=== PATIENT | female | born 1980 | race Asian ===

== ENCOUNTER 2022-04-01 14:39 | Emergency (ER) | payer SELFPAY ==
[2022-04-01 15:31] LABS: Appearance,Urine Clear (Clear); Bilirubin,Urine Negative (Negative); Blood,Urine Negative (Negative); Color,Urine Colorless; Glucose,Urine (UA) Negative (Negative); Ketones,Urine Negative (Negative); Leukocyte Esterase,Urine Negative (Negative); Nitrite,Urine Negative (Negative); Protein,Urine Negative (Negative); Specific Gravity,Urine 1.003 (1.001-1.035); Urobilinogen,Urine <2.0 mg/dL (<2.0)
[2022-04-01] MEDS ORDERED: SODIUM CHLORIDE 0.9% 1,000 ML IV STA (16:29)
[2022-04-01] MEDS ORDERED: ACETAMINOPHEN TAB 500 MG TAB PO STA (16:30)
[2022-04-01 17:25] LABS: Basophils % (A) 0 %; Eosinophils # (A) 0.1 k/uL (0-0.7); Eosinophils % (A) 1 %; HCT 42.5 % (34.0-46.0); Lymphocytes # (A) 2.4 k/uL (1.0-4.8); Lymphocytes % (A) 34 %; MCH 31.3 pg (25.0-35.0); MCV 94.7 fL (80.0-100.0); Mean Platelet Volume 6.8; Monocytes # (A) 0.4 k/uL (0-1.0); Monocytes % (A) 6 %; Neutrophils # (A) 3.8 k/uL (1.3-7.7); Neutrophils % (A) 56 %; Platelet Count 342 k/uL (150-450); RBC 4.49 m/uL (3.80-5.40); WBC 6.9 k/uL (3.8-10.6)
--- NOTE | 2022-04-01 17:30 | US ---
EXAMINATION TYPE: Transabdominal DATE OF EXAM: 04/01/2022 5:09 PM COMPARISON: NONE CLINICAL HISTORY: VB and pain, at 4-5 weeks. spotting EXAM PERFORMED: Transvaginal (TV) and Transabdominal (TA) EXAM MEASUREMENTS: GESTATIONAL AGE / DATING Physician Established: Not yet established Dates by LMP: ( 5 weeks/0 days) EDC: 12/02/2022 Dates by First Scan: No previous this is first scan Dates by Current Scan for: Unable to date by today's study MATERNAL ANATOMY Uterus: 9.9 x 5.0 x 6.1 cm Right Ovary: obscured by bowel gas. Left Ovary: obscured by bowel gas. Post CDS / Adnexa: wnl Presence of free fluid: wnl Presence of corpus luteal cyst: no Presence of subchorionic bleed: no IMPRESSION: Uterus is empty. No adnexal mass. Ovaries are not seen. No free fluid.
[2022-04-01 17:36] LABS: ALT 15 U/L (4-34); AST 21 U/L (14-36); African American GFR (CKD) >90 (>60 ml/min/1.73 sqM); Albumin 4.7 g/dL (3.5-5.0); Alkaline Phosphatase 46 U/L (38-126); Anion Gap 14 mmol/L; Blood Urea Nitrogen 11 mg/dL (7-17); Carbon Dioxide 21 mmol/L (22-30); Chloride 103 mmol/L (98-107); Glucose 91 mg/dL (74-99); Lipase 193 U/L (23-300); Non-African American GFR(CKD) >90 (>60 ml/min/1.73 sqM); Potassium 3.8 mmol/L (3.5-5.1); Sodium 138 mmol/L (137-145); Total Bilirubin 0.4 mg/dL (0.2-1.3); Total Protein 7.4 g/dL (6.3-8.2)
[2022-04-01 17:53] LABS: HCG,Quantitative Serum 642.5 mIU/mL
--- NOTE | 2022-04-01 18:28 | ED ---
Abdominal Pain HPI - General Chief Complaint: Abdominal Pain Stated Complaint: ,Discharge,5wks Time Seen by Provider: 04/01/22 16:08 Source: patient Mode of arrival: ambulatory Limitations: language barrier - History of Present Illness Initial Comments: Patient is a 42-year-old A0 female at approximately 4-5 weeks who presents to the emergency department with a chief complaint of abdominal pain and vaginal bleeding. Patient states symptoms started a couple days ago. Describes pain as cramping in the lower abdomen. Has noticed brown discharge when wiping for the past couple days, more so in the morning. Denies bright red blood or clots. Denies fever, chills, nausea, vomiting. Patient has not established care with an mold sprayer yet. She resides in [facility] and is here visiting her 's family for the next month. - Related Data Allergies Allergy/AdvReac Type Severity Reaction Status Date / Time No Known Allergies Allergy Verified 04/01/22 15:11 Review of Systems ROS Statement: Those systems with pertinent positive or pertinent negative responses have been documented in the HPI. ROS Other: All systems not noted in ROS Statement are negative. Past Medical History Past Medical History: No Reported History Past Surgical History: No Surgical Hx Reported Past Psychological History: No Psychological Hx Reported Past Alcohol Use History: None Reported Past Drug Use History: None Reported General Exam Limitations: language barrier General appearance: alert, in no apparent distress Eye exam: Present: normal appearance, PERRL, EOMI. Absent: scleral icterus, conjunctival injection, periorbital swelling Respiratory exam: Present: normal lung sounds bilaterally. Absent: respiratory distress, wheezes, rales, rhonchi, stridor Cardiovascular Exam: Present: regular rate, normal rhythm, normal heart sounds. Absent: systolic murmur, diastolic murmur, rubs, gallop, clicks GI/Abdominal exam: Present: soft, normal bowel sounds. Absent: distended, tenderness, guarding, rebound, rigid Neurological exam: Present: alert, oriented X3, CN II-XII intact Psychiatric exam: Present: normal affect, normal mood Skin exam: Present: warm, dry, intact, normal color. Absent: rash Course Vital Signs 04/01/22 15:07 Temperature 98.7 F Pulse Rate 64 Respiratory 18 Rate Blood Pressure 112/75 O2 Sat by Pulse 98 Oximetry Medical Decision Making - Medical Decision Making This is a 42-year-old female approximately 45 weeks who presents with lower abdominal cramping and vaginal bleeding. Thorough history and examination were performed. Patient is well-appearing and in no apparent distress. Vitals stable. The abdomen is soft and nontender. Laboratory studies obtained. Serum quantitative hCG is 642.5. Ultrasound shows an empty uterus with no adnexal mass and no free fluid. RhoGAM is not indicated. Results discussed with patient and her . She may be too early in for ultrasound changes. Patient will be given prescription for repeat beta hCG in 48 hours for threatened miscarriage. Patient will be in [place] for another month. I will refer her to mold sprayer who can further evaluate and manage her symptoms. Patient encouraged to call Dr. Carvajal first thing Monday morning. Return parameters discussed. Dr. Melendrez is my attending. - Lab Data Result diagrams: 04/01/22 17:09 04/01/22 17:09 Lab Results 04/01/22 04/01/22 04/01/22 Range/Units 15:13 15:13 17:09 WBC 6.9 (3.8-10.6) k/uL RBC 4.49 (3.80-5.40) m/uL Hgb 14.0 (11.4-16.0) gm/dL Hct 42.5 (34.0-46.0) % MCV 94.7 (80.0-100.0) fL MCH 31.3 (25.0-35.0) pg MCHC 33.0 (31.0-37.0) g/dL RDW 12.0 (11.5-15.5) % Plt Count 342 (150-450) k/uL MPV 6.8 Neutrophils % 56 % Lymphocytes % 34 % Monocytes % 6 % Eosinophils % 1 % Basophils % 0 % Neutrophils # 3.8 (1.3-7.7) k/uL Lymphocytes # 2.4 (1.0-4.8) k/uL Monocytes # 0.4 (0-1.0) k/uL Eosinophils # 0.1 (0-0.7) k/uL Basophils # 0.0 (0-0.2) k/uL Sodium (137-145) mmol/L Potassium (3.5-5.1) mmol/L Chloride (98-107) mmol/L Carbon Dioxide (22-30) mmol/L Anion Gap mmol/L BUN (7-17) mg/dL Creatinine (0.52-1.04) mg/dL Est GFR (CKD-EPI)AfAm (>60 ml/min/1.73 sqM) Est GFR (CKD-EPI)NonAf (>60 ml/min/1.73 sqM) Glucose (74-99) mg/dL Calcium (8.4-10.2) mg/dL Total Bilirubin (0.2-1.3) mg/dL AST (14-36) U/L ALT (4-34) U/L Alkaline Phosphatase (38-126) U/L Total Protein (6.3-8.2) g/dL Albumin (3.5-5.0) g/dL Lipase (23-300) U/L HCG, Quant mIU/mL Urine Color Colorless Urine Appearance Clear (Clear) Urine pH 6.0 (5.0-8.0) Ur Specific [place] 1.003 (1.001-1.035) Urine Protein Negative (Negative) Urine Glucose (UA) Negative (Negative) Urine Ketones Negative (Negative) Urine Blood Negative (Negative) Urine Nitrite Negative (Negative) Urine Bilirubin Negative (Negative) Urine Urobilinogen <2.0 (<2.0) mg/dL Ur Leukocyte Esterase Negative (Negative) Urine HCG, Qual Detected (Not Detectd) Blood Type Blood Type Recheck Bld Type Recheck Status Antibody Screen Spec Expiration Date 04/01/22 04/01/22 Range/Units 17:09 17:10 WBC (3.8-10.6) k/uL RBC (3.80-5.40) m/uL Hgb (11.4-16.0) gm/dL Hct (34.0-46.0) % MCV (80.0-100.0) fL MCH (25.0-35.0) pg MCHC (31.0-37.0) g/dL RDW (11.5-15.5) % Plt Count (150-450) k/uL MPV Neutrophils % % Lymphocytes % % Monocytes % % Eosinophils % % Basophils % % Neutrophils # (1.3-7.7) k/uL Lymphocytes # (1.0-4.8) k/uL Monocytes # (0-1.0) k/uL Eosinophils # (0-0.7) k/uL Basophils # (0-0.2) k/uL Sodium 138 (137-145) mmol/L Potassium 3.8 (3.5-5.1) mmol/L Chloride 103 (98-107) mmol/L Carbon Dioxide 21 L (22-30) mmol/L Anion Gap 14 mmol/L BUN 11 (7-17) mg/dL Creatinine 0.43 L (0.52-1.04) mg/dL Est GFR (CKD-EPI)AfAm >90 (>60 ml/min/1.73 sqM) Est GFR (CKD-EPI)NonAf >90 (>60 ml/min/1.73 sqM) Glucose 91 (74-99) mg/dL Calcium 9.0 (8.4-10.2) mg/dL Total Bilirubin 0.4 (0.2-1.3) mg/dL AST 21 (14-36) U/L ALT 15 (4-34) U/L Alkaline Phosphatase 46 (38-126) U/L Total Protein 7.4 (6.3-8.2) g/dL Albumin 4.7 (3.5-5.0) g/dL Lipase 193 (23-300) U/L HCG, Quant 642.5 mIU/mL Urine Color Urine Appearance (Clear) Urine pH (5.0-8.0) Ur Specific [place] (1.001-1.035) Urine Protein (Negative) Urine Glucose (UA) (Negative) Urine Ketones (Negative) Urine Blood (Negative) Urine Nitrite (Negative) Urine Bilirubin (Negative) Urine Urobilinogen (<2.0) mg/dL Ur Leukocyte Esterase (Negative) Urine HCG, Qual (Not Detectd) Blood Type O Positive Blood Type Recheck No Previous Record Bld Type Recheck Status CABO Indicated Antibody Screen NEGATIVE Spec Expiration Date 04/04/20222309 Disposition Clinical Impression: Threatened miscarriage in early , Vaginal bleeding affecting early Disposition: HOME SELF-CARE Condition: Good Instructions (If sedation given, give patient instructions): Threatened Miscarriage (ED) Additional Instructions: Please take prescription to a lab or mold sprayer for repeat serum quantitative beta hCG in 48 hours. It is important to make sure this level is trending upward. You can Google local labs and call them to see if they take walk-ins for blood draw. Have the results sent to mold sprayer Dr. Carvajal. Return to the emergency department if you experience new, concerning, or worsening symptoms. Is patient prescribed a controlled substance at d/c from ED?: No Referrals: Brenda Carvajal DO [Doctor of Osteopathic Medicine] - 1-2 days None,Stated [Primary Care Provider] - 1-2 days Time of Disposition: 18:28
[2022-04-01 19:08] VITALS: RESP 20
[2022-04-01 19:10] VITALS: BP 110/66; PULSE 62; TEMP 97.8
== END 2022-04-01 19:09 | disposition home or self-care (01) ==
LOC: EC 14:39
DX: O20.0 Threatened abortion (principal); O26.851 Spotting complicating pregnancy, first trimester; Z3A.00 Weeks of gestation of pregnancy not specified
CPT/HCPCS: 36415; 76801; 76817; 80053; 81003; 81025; 83690; 84702; 85025; 86850; 86900; 86901

== ENCOUNTER → 2022-04-11 | Outpatient (CLI) | payer SELFPAY ==
--- NOTE | 2022-04-11 17:52 | US ---
EXAMINATION TYPE: Transabdominal DATE OF EXAM: 04/11/2022 5:24 PM COMPARISON: 04/01/22 CLINICAL HISTORY: O26.851 SPOTTING COMPLICATING , FIRST TRI. spotting and cramping EXAM PERFORMED: Transvaginal (TV) and Transabdominal (TA) EXAM MEASUREMENTS: GESTATIONAL AGE / DATING Physician Established: Not yet established Dates by LMP: 02/25/22 (6 weeks/0 days) EDC: 12/02/21 Dates by First Scan: No IUP visualized last scan. Dates by Current Scan for: No IUP seen at this time MATERNAL ANATOMY Uterus: 9.7 x 4.9 x 4.5 cm Right Ovary: 3.0 x 2.8 x 1.8 cm Left Ovary: 3.0 x 2.0 x 1.0 cm Post CDS / Adnexa: Fluid seen in post cul de sac Presence of free fluid: Yes Presence of corpus luteal cyst: Yes in right ovary measuring 2.0 x 1.7 x 1.3 cm Presence of subchorionic bleed: No GESTATION / SURVEY CRL: Not vis. IUP: No IUP seen at this time Date of LMP: 02/25/22 Beta HcG (if available): N/A Hypoechoic area with anechoic center with vascularity surrounding it seen in right adnexa measuring 2 .1 x 1.7 x 1.5 cm. ? ectopic. IMPRESSION: There is free fluid in the cul-de-sac. The uterus is empty. No sign of an ectopic gestational sac.
== END | disposition home or self-care (01) ==
LOC: RADUSWWP 16:43
PROVIDERS: ATTEND Family Medicine
DX: O26.851 Spotting complicating pregnancy, first trimester (principal); Z3A.00 Weeks of gestation of pregnancy not specified
CPT/HCPCS: 76801; 76817

== ENCOUNTER → 2022-04-19 | Emergency (ER) | payer OTHER | LOC: EC 13:28 | DX: Z53.21 Procedure and treatment not carried out due to patient leaving prior to being seen by health care provider (principal) | CPT/HCPCS: 99499 ==